=== PATIENT | female | born 1940 | race Asian ===

== ENCOUNTER 2018-04-12 10:04 | Outpatient (CLI) | payer OTHER | END 2018-04-12 20:48 | disposition home or self-care (01) | LOC: SUS 10:04 | PROVIDERS: ATTEND Family Medicine | DX: R31.9 Hematuria, unspecified (principal) | CPT/HCPCS: 76770 ==

== ENCOUNTER 2018-04-22 11:50 | Outpatient (CLI) | payer OTHER | END 2018-04-22 23:19 | disposition home or self-care (01) | LOC: SRD 11:50 | DX: N20.0 Calculus of kidney (principal); K44.9 Diaphragmatic hernia without obstruction or gangrene; K76.0 Fatty (change of) liver, not elsewhere classified ==

== ENCOUNTER 2018-07-28 12:20 | Outpatient (CLI) | payer OTHER, MEDICAID | END 2018-07-28 19:55 | disposition home or self-care (01) | LOC: SUS 12:20 | PROVIDERS: ATTEND Urology | DX: N13.30 Unspecified hydronephrosis (principal); N28.1 Cyst of kidney, acquired | CPT/HCPCS: 76770 ==

== ENCOUNTER 2018-08-04 11:33 | Outpatient (CLI) | payer OTHER | END 2018-08-04 20:17 | disposition home or self-care (01) | LOC: SCT 11:33 | PROVIDERS: ATTEND Family Medicine | DX: N13.2 Hydronephrosis with renal and ureteral calculous obstruction (principal); M47.897 Other spondylosis, lumbosacral region ==

== ENCOUNTER 2018-09-06 15:02 | Outpatient (CLI) | payer OTHER ==
[2018-09-07 08:14] LABS: % FREE PSA 22.7 % (.); FREE PSA 0.25 ng/mL; PROSTATE SPECIFIC AG TOTAL 1.1 ng/mL (0.0-4.0)
== END 2018-09-06 20:18 | disposition home or self-care (01) ==
LOC: SLB 15:02
PROVIDERS: ATTEND Urology
DX: Z12.5 Encounter for screening for malignant neoplasm of prostate (principal); R97.20 Elevated prostate specific antigen [PSA]
CPT/HCPCS: 36415; G0103

== ENCOUNTER 2018-09-12 10:33 | Outpatient (CLI) | payer OTHER | END 2018-09-12 20:39 | disposition home or self-care (01) | LOC: SUS 10:33 | PROVIDERS: ATTEND Urology | DX: N28.1 Cyst of kidney, acquired (principal) | CPT/HCPCS: 76770 ==

== ENCOUNTER 2018-11-10 10:44 | Outpatient (CLI) | payer OTHER | END 2018-11-10 18:49 | disposition home or self-care (01) | LOC: SUS 10:44 | PROVIDERS: ATTEND Urology | DX: N28.1 Cyst of kidney, acquired (principal) | CPT/HCPCS: 76770 ==

== ENCOUNTER 2018-12-02 07:30 | Outpatient (CLI) | payer OTHER ==
[~2018-12-02] VITALS: Ht 160 cm; Wt 81.6 kg
[2018-12-02] MEDS ORDERED: FUROSEMIDE 20 MG/2 ML VIAL IVP ONE (08:30)
== END 2018-12-02 19:38 | disposition home or self-care (01) ==
LOC: SNM 07:30
PROVIDERS: ATTEND Urology
DX: N13.39 Other hydronephrosis (principal)
CPT/HCPCS: 78708; A9562; J1940

== ENCOUNTER 2018-12-06 10:25 | Outpatient (CLI) | payer OTHER | END 2018-12-06 19:22 | disposition home or self-care (01) | LOC: SMI 10:25 | PROVIDERS: ATTEND Family Medicine | DX: M47.814 Spondylosis without myelopathy or radiculopathy, thoracic region (principal); M51.24 Other intervertebral disc displacement, thoracic region; M47.817 Spondylosis without myelopathy or radiculopathy, lumbosacral region; M51.36 Other intervertebral disc degeneration, lumbar region | CPT/HCPCS: 72146; 72148 ==

== ENCOUNTER → 2019-01-24 | Outpatient (CLI) | payer OTHER ==
[2019-01-24 09:28] LABS: ANION GAP 7 (5-15); CALCIUM 8.9 mg/dL (8.4-11.0); CHLORIDE 101 mmol/L (98-107); CREATININE 1.03 mg/dL (0.55-1.30); GLUCOSE 194 mg/dL (70-99); POTASSIUM 4.7 mmol/L (3.5-5.1); SODIUM SERUM 137 mmol/L (136-145); UREA NITROGEN, BLOOD 13 mg/dL (8-21)
[2019-01-24 09:32] LABS: ALANINE AMINOTRANSFERASE 38 U/L (12-78); ALBUMIN 3.6 g/dL (3.4-4.8); ASPARTATE AMINOTRANSFERASE 26 U/L (10-37); CHOLESTEROL 118 mg/dL (<200); HDL CHOLESTEROL 33 mg/dL (>45); LDL CHOLESTEROL 75 mg/dL (<100); TOTAL BILIRUBIN 0.9 mg/dL (0.0-1.0); TRIGLYCERIDES 74 mg/dL (30-150)
[2019-01-24 09:43] LABS: WHITE BLOOD COUNT (AUTO) 9.5 K/uL (4.8-10.8)
[2019-01-24 09:44] LABS: BASOPHILS % (AUTO) 0.6 % (0.0-2.0); EOSINOPHILS % (AUTO) 5.1 % (0.0-4.0); HEMATOCRIT 43.6 % (36-54); HEMOGLOBIN 14.5 g/dL (14.0-18.0); LYMPHOCYTES # (AUTO) 3.6 K/uL (1.0-5.5); LYMPHOCYTES % (AUTO) 38.1 % (20.5-51.5); MEAN CORPUSCULAR HEMOGLOBIN 30 pg (27-31); MEAN CORPUSCULAR HGB CONC 33 % (32-36); MEAN CORPUSCULAR VOLUME 91 fL (79.0-98.0); MONOCYTES % (AUTO) 11.2 % (1.7-9.3); NEUTROPHILS # (AUTO) 4.3 K/uL (1.8-7.7); PLATELET COUNT (AUTO) 202 K/uL (130-430); RED BLOOD CELL COUNT(AUTO) 4.78 MIL/uL (4.2-6.2); RED CELL DISTRIBUTION WIDTH 12.3 % (9.0-15.0)
[2019-01-24 09:45] LABS: BASOPHILS # (AUTO) 0.1 K/uL (0.0-0.2); EOSINOPHILS # (AUTO) 0.5 K/uL (0.0-0.4); MONOCYTES # (AUTO) 1.1 K/uL (0.0-1.0)
== END | disposition home or self-care (01) ==
LOC: SUS 08:10
PROVIDERS: ATTEND Surgery
DX: N28.1 Cyst of kidney, acquired (principal); K62.5 Hemorrhage of anus and rectum
CPT/HCPCS: 36415; 76700-TC; 80053; 80061; 85025

== ENCOUNTER 2019-01-25 18:03 | Outpatient (CLI) | payer OTHER | END 2019-01-25 20:57 | disposition home or self-care (01) | LOC: SRD 18:03 | PROVIDERS: ATTEND Family Medicine | DX: M19.012 Primary osteoarthritis, left shoulder (principal); M47.812 Spondylosis without myelopathy or radiculopathy, cervical region | CPT/HCPCS: 72040-TC; 73030 ==

== ENCOUNTER 2019-06-13 12:29 | Emergency (ER) | payer OTHER ==
[~2019-06-13] VITALS: Ht 160 cm; Wt 79.8 kg
[~2019-06-13 12:29] MED LIST: ASPI-862 PO; CALC-823 PO; DEXL60CA4 PO; HYDR-4274 PO; MAGN400T10 PO; METF1000 PO; METH500T PO; VITD2000 PO; VOLTAREN GEL 1% TP
[2019-06-13 12:38] VITALS: BP_SYST 126
[2019-06-13 13:54] LABS: BASOPHILS # (AUTO) 0.1 K/uL (0.0-0.2); BASOPHILS % (AUTO) 0.8 % (0.0-2.0); EOSINOPHILS # (AUTO) 0.4 K/uL (0.0-0.4); EOSINOPHILS % (AUTO) 3.7 % (0.0-4.0); HEMATOCRIT 44.7 % (36-54); HEMOGLOBIN 14.6 g/dL (14.0-18.0); LYMPHOCYTES # (AUTO) 3.1 K/uL (1.0-5.5); LYMPHOCYTES % (AUTO) 29.3 % (20.5-51.5); MEAN CORPUSCULAR HEMOGLOBIN 30 pg (27-31); MEAN CORPUSCULAR HGB CONC 33 % (32-36); MEAN CORPUSCULAR VOLUME 92 fL (79.0-98.0); MONOCYTES # (AUTO) 1.2 K/uL (0.0-1.0); MONOCYTES % (AUTO) 11.8 % (1.7-9.3); NEUTROPHILS # (AUTO) 5.7 K/uL (1.8-7.7); NEUTROPHILS % (AUTO) 54.4 % (40.0-70.0); PLATELET COUNT (AUTO) 204 K/uL (130-430); RED BLOOD CELL COUNT(AUTO) 4.84 MIL/uL (4.2-6.2); RED CELL DISTRIBUTION WIDTH 13.4 % (9.0-15.0); WHITE BLOOD COUNT (AUTO) 10.5 K/uL (4.8-10.8)
[2019-06-13 13:57] LABS: ANION GAP 10 (5-15); CALCIUM 9.5 mg/dL (8.4-11.0); CHLORIDE 101 mmol/L (98-107); CREATININE 1.09 mg/dL (0.55-1.30); GLUCOSE 264 mg/dL (70-99); POTASSIUM 4.3 mmol/L (3.5-5.1); SODIUM SERUM 137 mmol/L (136-145); UREA NITROGEN, BLOOD 14 mg/dL (8-21)
[2019-06-13 14:06] LABS: ALANINE AMINOTRANSFERASE 50 U/L (12-78); ALBUMIN 3.6 g/dL (3.4-4.8); ASPARTATE AMINOTRANSFERASE 31 U/L (10-37); LIPASE 56 U/L (73-393); TOTAL BILIRUBIN 0.7 mg/dL (0.0-1.0)
[2019-06-13] MEDS ORDERED: NACL 0.9% 1,000 ML IV ONE (14:15)
[2019-06-13] MEDS ORDERED: IOHEXOL 350 mgI/mL, 150 ML INFUS..BTL IV ONE (15:26)
[2019-06-13] MEDS ORDERED: KETOROLAC TROMETHAMINE 30 MG VIAL IVP ONE (17:45)
[2019-06-13 18:19] VITALS: BP_SYST 125
== END 2019-06-13 18:14 | disposition home or self-care (01) ==
LOC: SED 12:29
DX: R10.11 Right upper quadrant pain (principal); K21.9 Gastro-esophageal reflux disease without esophagitis; E11.9 Type 2 diabetes mellitus without complications; Z79.82 Long term (current) use of aspirin; Z79.899 Other long term (current) drug therapy
CPT/HCPCS: 36415; 71045; 71275; 80053; 83690; 84484; 85025; 85379; 93005; 96374; 99284; J1885; J7030; Q9967

== ENCOUNTER 2019-07-07 11:59 | Emergency (ER) | payer OTHER ==
[~2019-07-07] VITALS: Ht 160 cm; Wt 72.6 kg
--- NOTE | 2019-07-07 12:10 | NUR ---
Patient to ER bed 8 to gown for evaluation. Side rails up. Report given to Soo HOYOS.
--- NOTE | 2019-07-07 12:25 | NUR ---
Patient arrives with c/o of chest discomfort. Current pain 07/01. Patient reports also having generalized pain. No other c/o at the moment
[2019-07-07] MEDS ORDERED: KETOROLAC TROMETHAMINE 30 MG VIAL IVP ONE (12:30)
--- NOTE | 2019-07-07 12:30 | NUR ---
LEANDRO James at bedside examining patient.
--- NOTE | 2019-07-07 12:36 | NUR ---
Toradol given for pain 8/10 pain. Will reassess.
--- NOTE | 2019-07-07 12:45 | NUR ---
Patient current CP is 3/10. Patient reports feeling better.
[2019-07-07 13:11] LABS: BASOPHILS # (AUTO) 0.1 K/uL (0.0-0.2); BASOPHILS % (AUTO) 0.7 % (0.0-2.0); EOSINOPHILS # (AUTO) 0.2 K/uL (0.0-0.4); EOSINOPHILS % (AUTO) 1.5 % (0.0-4.0); HEMATOCRIT 44.2 % (36-54); HEMOGLOBIN 14.7 g/dL (14.0-18.0); LYMPHOCYTES # (AUTO) 2.8 K/uL (1.0-5.5); LYMPHOCYTES % (AUTO) 24.9 % (20.5-51.5); MEAN CORPUSCULAR HEMOGLOBIN 30 pg (27-31); MEAN CORPUSCULAR HGB CONC 33 % (32-36); MEAN CORPUSCULAR VOLUME 91 fL (79.0-98.0); MONOCYTES # (AUTO) 1.1 K/uL (0.0-1.0); MONOCYTES % (AUTO) 10.2 % (1.7-9.3); NEUTROPHILS # (AUTO) 7.1 K/uL (1.8-7.7); NEUTROPHILS % (AUTO) 62.7 % (40.0-70.0); PLATELET COUNT (AUTO) 157 K/uL (130-430); RED BLOOD CELL COUNT(AUTO) 4.85 MIL/uL (4.2-6.2); RED CELL DISTRIBUTION WIDTH 13.9 % (9.0-15.0); WHITE BLOOD COUNT (AUTO) 11.2 K/uL (4.8-10.8)
[2019-07-07 13:26] LABS: ANION GAP 13 (5-15); CALCIUM 9.3 mg/dL (8.4-11.0); CHLORIDE 104 mmol/L (98-107); CREATININE 1.08 mg/dL (0.55-1.30); GLUCOSE 227 mg/dL (70-99); POTASSIUM 4.6 mmol/L (3.5-5.1); SODIUM SERUM 142 mmol/L (136-145); UREA NITROGEN, BLOOD 12 mg/dL (8-21)
[2019-07-07 13:35] LABS: ALANINE AMINOTRANSFERASE 37 U/L (12-78); ALBUMIN 3.6 g/dL (3.4-4.8); ASPARTATE AMINOTRANSFERASE 26 U/L (10-37); TOTAL BILIRUBIN 0.9 mg/dL (0.0-1.0)
[2019-07-07 13:42] LABS: BILIRUBIN,URINE NEGATIVE (NEGATIVE); BLOOD, URINE NEGATIVE (NEGATIVE); CLARITY/URINE CLEAR (CLEAR); COLOR,URINE YELLOW (YELLOW); GLUCOSE,URINE TRACE (NEGATIVE); KETONES,URINE NEGATIVE (NEGATIVE); LEUKOCYTE ESTERASE ,URINE NEGATIVE (NEGATIVE); NITRITE, URINE NEGATIVE (NEGATIVE); PROTEIN URINE NEGATIVE (NEGATIVE)
--- NOTE | 2019-07-07 14:00 | NUR ---
Patient given written and verbal discharge instructions and verbalizes understanding. ER MD discussed with patient the results and treatment provided. Patient in stable condition. ID arm band removed. IV catheter removed intact and dressing applied, no active bleeding.Patient educated on pain management and to follow up with PMD. Pain Scale 3/10 .Opportunity for questions provided and answered. Medication side effect fact sheet provided.
[2019-07-07 14:49] VITALS: BP_SYST 153
== END 2019-07-07 14:00 | disposition home or self-care (01) ==
LOC: SED 11:59
DX: K59.00 Constipation, unspecified (principal); E11.9 Type 2 diabetes mellitus without complications; K21.9 Gastro-esophageal reflux disease without esophagitis; Z79.82 Long term (current) use of aspirin; Z79.84 Long term (current) use of oral hypoglycemic drugs; Z79.899 Other long term (current) drug therapy
CPT/HCPCS: 36415; 71045; 74176; 80053; 81003; 83880; 84484; 85025; 93005; 96374; 99284; J1885

== ENCOUNTER 2019-08-16 11:27 | Outpatient (CLI) | payer OTHER | END 2019-08-16 21:07 | disposition home or self-care (01) | LOC: SMI 11:27 | DX: M51.34 Other intervertebral disc degeneration, thoracic region (principal); M48.54XA Collapsed vertebra, not elsewhere classified, thoracic region, initial encounter for fracture; M51.24 Other intervertebral disc displacement, thoracic region | CPT/HCPCS: 36415; 72146; 85651-TC; 86140 ==

== ENCOUNTER 2020-01-05 09:52 | Outpatient (CLI) | payer OTHER | END 2020-01-05 19:02 | disposition home or self-care (01) | LOC: SLB 09:52 | DX: N28.1 Cyst of kidney, acquired (principal); J44.9 Chronic obstructive pulmonary disease, unspecified; I70.90 Unspecified atherosclerosis; R97.20 Elevated prostate specific antigen [PSA]; N20.0 Calculus of kidney | CPT/HCPCS: 36415; 84153 ==

== ENCOUNTER 2020-01-16 11:48 | Outpatient (CLI) | payer OTHER | END 2020-01-16 21:08 | disposition home or self-care (01) | LOC: SLB 11:48 | DX: S46.012A Strain of muscle(s) and tendon(s) of the rotator cuff of left shoulder, initial encounter (principal); X58.XXXA Exposure to other specified factors, initial encounter; Y93.89 Activity, other specified; Y92.89 Other specified places as the place of occurrence of the external cause; Y99.8 Other external cause status | CPT/HCPCS: 36415; 85651-TC; 86140 ==

== ENCOUNTER 2020-07-22 11:32 | Outpatient (CLI) | payer OTHER | END 2020-07-22 20:13 | disposition home or self-care (01) | LOC: SUS 11:32 | PROVIDERS: ATTEND Family Medicine | DX: N28.1 Cyst of kidney, acquired (principal); N40.0 Benign prostatic hyperplasia without lower urinary tract symptoms; I82.403 Acute embolism and thrombosis of unspecified deep veins of lower extremity, bilateral; R31.0 Gross hematuria; G89.29 Other chronic pain | CPT/HCPCS: 76770; 93970 ==

== ENCOUNTER 2020-12-20 16:18 | Emergency (ER) | payer OTHER ==
[~2020-12-20] VITALS: Ht 170.2 cm; Wt 80.3 kg
[2020-12-20 16:35] VITALS: BP_SYST 132
--- NOTE | 2020-12-20 16:35 | NUR ---
PT TO BED 2 FOR EVALUATION
--- NOTE | 2020-12-20 16:44 | NUR ---
RECEIVED AND IN ROOM, PT HERE FOR RT LEG PAIN S/P HOSPITALIZATION. DENIES INJURY LARGE HEMATOMA TO RT KNEE AND THIGH
--- NOTE | 2020-12-20 17:12 | NUR ---
DR AGUILARAL IN TO REASSESS
--- NOTE | 2020-12-20 17:28 | NUR ---
UPDATE TO DAUGHTER, LILLY
--- NOTE | 2020-12-20 17:46 | NUR ---
KNEE X-SHELBIE COMPLETED
--- NOTE | 2020-12-20 17:50 | NUR ---
ULTRASOUND AT BEDSIDE
[2020-12-20 19:19] VITALS: BP_SYST 141
--- NOTE | 2020-12-20 19:20 | NUR ---
Patient given written and verbal discharge instructions and verbalizes understanding. ER MD discussed with patient the results and treatment provided. Patient in stable condition. ID arm band removed. Patient educated on pain management and to follow up with PMD. Pain Scale []. Opportunity for questions provided and answered.
== END 2020-12-20 21:32 | disposition home or self-care (01) ==
LOC: SED 16:18
DX: M25.561 Pain in right knee (principal); M79.651 Pain in right thigh; E11.9 Type 2 diabetes mellitus without complications; K21.9 Gastro-esophageal reflux disease without esophagitis; Z79.899 Other long term (current) drug therapy; Z79.82 Long term (current) use of aspirin
CPT/HCPCS: 73564; 93971; 99284

== ENCOUNTER 2023-04-30 15:06 | Outpatient (CLI) | payer OTHER | END 2023-04-30 18:54 | disposition home or self-care (01) | LOC: SCT 15:06 | DX: S09.90XA Unspecified injury of head, initial encounter (principal); G31.89 Other specified degenerative diseases of nervous system; W19.XXXA Unspecified fall, initial encounter; Y93.89 Activity, other specified; Y92.89 Other specified places as the place of occurrence of the external cause; Y99.8 Other external cause status | CPT/HCPCS: 70450-TC; 76376 ==

== ENCOUNTER 2023-10-07 13:13 | Outpatient (CLI) | payer OTHER ==
[2023-10-07 16:21] LABS: ALANINE AMINOTRANSFERASE 21 U/L (12-78); ANION GAP 10 (5-15); ASPARTATE AMINOTRANSFERASE 14 U/L (10-37); CALCIUM 9.9 mg/dL (8.4-11.0); CARBON DIOXIDE 29 mmol/L (23-29); CHLORIDE 95 mmol/L (98-107); CREATININE 1.07 mg/dL (0.55-1.30); GLUCOSE 383 mg/dL (74-106); POTASSIUM 4.5 mmol/L (3.5-5.1); SODIUM SERUM 134 mmol/L (136-145); TOTAL BILIRUBIN 1.5 mg/dL (0.0-1.0); UREA NITROGEN, BLOOD 16 mg/dL (8-21)
== END 2023-10-07 18:22 | disposition home or self-care (01) ==
LOC: SMI 13:13
PROVIDERS: ATTEND Psychiatry & Neurology Neurology
DX: G31.89 Other specified degenerative diseases of nervous system (principal); N20.0 Calculus of kidney; J84.9 Interstitial pulmonary disease, unspecified; I25.10 Atherosclerotic heart disease of native coronary artery without angina pectoris; R59.0 Localized enlarged lymph nodes; K44.9 Diaphragmatic hernia without obstruction or gangrene; M40.294 Other kyphosis, thoracic region; N28.89 Other specified disorders of kidney and ureter; I70.90 Unspecified atherosclerosis; J96.11 Chronic respiratory failure with hypoxia; R26.9 Unspecified abnormalities of gait and mobility; I10 Essential (primary) hypertension; E11.9 Type 2 diabetes mellitus without complications; R05.9 Cough, unspecified
CPT/HCPCS: 36415; 70551; 71250-TC; 76376; 80053

== ENCOUNTER 2023-10-26 12:55 | Outpatient (CLI) | payer OTHER | END 2023-10-26 18:52 | disposition home or self-care (01) | LOC: SCT 12:55 | DX: G31.89 Other specified degenerative diseases of nervous system (principal); J34.89 Other specified disorders of nose and nasal sinuses | CPT/HCPCS: 70450-TC; 76376 ==

== ENCOUNTER 2024-06-03 13:31 | Inpatient (IN) | payer OTHER ==
[~2024-06-03] VITALS: Ht 160 cm; Wt 65.8 kg
[2024-06-03] VITALS (7 sets, daily range): BP systolic 120–143; PULSE 58–88; RESP 16–20; TEMP 97.5–97.8; O2SAT 94–99
[2024-06-03] MEDS: IPRATROPIUM/ALBUTEROL SULFATE 3 ML AMPUL.NEB (DUONEB) INH ONE (15:11)
[2024-06-03] MEDS: methylPREDNISolone SOD SUCC/PF 62.5 MG/ML VIAL IVP ONE (15:27)
[2024-06-03 15:33] LABS: HEMOGLOBIN 16.4 g/dL (14.0-18.0)
[2024-06-03 15:40] LABS: BASOPHILS # (AUTO) 0.1 K/uL (0.0-0.2); BASOPHILS % (AUTO) 0.8 % (0.0-2.0); EOSINOPHILS # (AUTO) 0.3 K/uL (0.0-0.4); EOSINOPHILS % (AUTO) 2.8 % (0.0-4.0); LYMPHOCYTES # (AUTO) 2.7 K/uL (1.0-5.5); LYMPHOCYTES % (AUTO) 26.7 % (20.5-51.5); MEAN CORPUSCULAR HEMOGLOBIN 30 pg (27-31); MEAN CORPUSCULAR HGB CONC 34 % (32-36); MEAN CORPUSCULAR VOLUME 88 fL (79.0-98.0); MONOCYTES # (AUTO) 1.1 K/uL (0.0-1.0); MONOCYTES % (AUTO) 10.9 % (1.7-9.3); NEUTROPHILS # (AUTO) 5.9 K/uL (1.8-7.7); NEUTROPHILS % (AUTO) 58.8 % (40.0-70.0); PLATELET COUNT (AUTO) 250 K/uL (130-430); RED BLOOD CELL COUNT(AUTO) 5.46 MIL/uL (4.2-6.2); RED CELL DISTRIBUTION WIDTH 13.7 % (9.0-15.0)
[2024-06-03 16:04] LABS: ANION GAP 6 (5-15); CALCIUM 9.8 mg/dL (8.4-11.0); CARBON DIOXIDE 31 mmol/L (23-29); CHLORIDE 97 mmol/L (98-107); CREATININE 1.16 mg/dL (0.55-1.30); POTASSIUM 4.4 mmol/L (3.5-5.1); SODIUM SERUM 134 mmol/L (136-145); UREA NITROGEN, BLOOD 23 mg/dL (8-21)
[2024-06-03 16:09] LABS: GLUCOSE 438 mg/dL (74-106)
[2024-06-03] MEDS ORDERED: methylPREDNISolone SOD SUCC 500 MG/VIAL (Solu-MEDROL) IV SCH (16:30)
[2024-06-03] MEDS ORDERED: GLUCOSE (DEXTROSE) ORAL GEL -Adults PO PRN (16:30)
[2024-06-03] MEDS ORDERED: ONDANSETRON HCL 4 MG/2 ML VIAL IVP PRN (16:30)
[2024-06-03] MEDS ORDERED: MORPHINE 2 MG/ML INJ. SYRINGE IVP PRN (16:30)
[2024-06-03] MEDS ORDERED: ACETAMINOPHEN 325 MG TABLET PO PRN (16:30)
[2024-06-03] MEDS ORDERED: HYDROcodone/ACETAMIN 5-325 MG TAB (NORCO/ VICODIN) PO PRN (16:30)
[2024-06-03] MEDS ORDERED: NACL 0.9% 1,000 ML IV SCH ×2 (16:30→18:00)
[2024-06-03] MEDS ORDERED: D5W 1,000 ML IV PRN (16:30)
[2024-06-03] MEDS: INSULIN REGULAR, HUMAN 10 UNITS/0.1 ML, 3 ML VIAL IVP ONE (17:12)
[2024-06-03] MEDS: cefTRIAXone 1 GM IVPB PREMIX 50 ML IV ONE (17:21)
[2024-06-03] MEDS ORDERED: DICL100G59 (17:46)
[2024-06-03] MEDS ORDERED: CLOP75TA2 (17:46)
[2024-06-03] MEDS ORDERED: OXYC-133 (17:46)
[2024-06-03] MEDS ORDERED: INSU3INS8 (17:46)
[2024-06-03] MEDS ORDERED: GLIM2TAB (17:46)
[2024-06-03] MEDS ORDERED: LINA290C (17:46)
[2024-06-03] MEDS ORDERED: ALBMDI (17:46)
[2024-06-03] MEDS ORDERED: INSU100I24 (17:46)
[2024-06-03] MEDS ORDERED: LINA5TAB2 (17:46)
[2024-06-03] MEDS ORDERED: INSU100V26 (17:46)
[2024-06-03] MEDS ORDERED: LIP20 (17:46)
[2024-06-03] MEDS ORDERED: DEXL60CA4 (17:46)
[2024-06-03] MEDS ORDERED: CLOT30CR37 (17:46)
[2024-06-03] MEDS: NACL 0.9% 1,000 ML IV SCH (19:01)
[2024-06-03] MEDS: NS 500 ML IV ONE ×2 (19:09→19:10)
[2024-06-03] MEDS: IPRATROPIUM BROM 0.5 MG/2.5 ML VIAL.NEB (ATROVENT) INH SCH (19:14)
[2024-06-03] MEDS: ALBUTEROL SULFATE 0.083% 2.5 MG/3 ML VIAL.NEB INH SCH (19:15)
[2024-06-03] MEDS: INSULIN GLARGINE 100 UNITS/ML, 10 ML VIAL SUBCUT SCH (20:21)
[2024-06-03] MEDS: INSULIN LISPRO SLIDING SCALE 100 UNITS/ML, 3 ML VIAL (humaLOG) SUBCUT PRN (20:26)
[2024-06-03] MEDS: AZITHROMYCIN 500 MG in NS 250 ML IV SCH (21:11)
[2024-06-03] MEDS: METHYLPREDNISOLONE SOD SUCC 40 MG/ML VIAL IVP SCH (21:12)
[2024-06-03] MEDS: AZITHROMYCIN 500 MG/VIAL (ZITHROMAX) IV ONE (21:12)
[2024-06-03] MEDS: ENOXAPARIN SODIUM 30 MG/0.3 ML SYRINGE SUBCUT SCH (22:57)
[2024-06-04] VITALS (12 sets, daily range): BP systolic 95–132; PULSE 85–94; RESP 16–18; TEMP 97–98.4; O2SAT 96–100
[2024-06-04 07:18] LABS: BASOPHILS % (AUTO) 0.1 % (0.0-2.0); HEMATOCRIT 45.6 % (36-54); LYMPHOCYTES # (AUTO) 1.2 K/uL (1.0-5.5); LYMPHOCYTES % (AUTO) 10.3 % (20.5-51.5); MEAN CORPUSCULAR HEMOGLOBIN 29 pg (27-31); MEAN CORPUSCULAR HGB CONC 33 % (32-36); MEAN CORPUSCULAR VOLUME 88 fL (79.0-98.0); MONOCYTES # (AUTO) 0.4 K/uL (0.0-1.0); MONOCYTES % (AUTO) 3.3 % (1.7-9.3); NEUTROPHILS # (AUTO) 10.4 K/uL (1.8-7.7); NEUTROPHILS % (AUTO) 86.3 % (40.0-70.0); PLATELET COUNT (AUTO) 260 K/uL (130-430); RED BLOOD CELL COUNT(AUTO) 5.18 MIL/uL (4.2-6.2); RED CELL DISTRIBUTION WIDTH 13.9 % (9.0-15.0)
[2024-06-04 07:46] LABS: ALANINE AMINOTRANSFERASE 19 U/L (12-78); ALBUMIN 3.8 g/dL (3.4-4.8); ANION GAP 9 (5-15); ASPARTATE AMINOTRANSFERASE 10 U/L (10-37); CALCIUM 9.5 mg/dL (8.4-11.0); CARBON DIOXIDE 30 mmol/L (23-29); CHLORIDE 98 mmol/L (98-107); CREATININE 1.11 mg/dL (0.55-1.30); PHOSPHORUS 3.9 mg/dL (2.7-4.5); POTASSIUM 3.9 mmol/L (3.5-5.1); SODIUM SERUM 137 mmol/L (136-145); TOTAL BILIRUBIN 0.9 mg/dL (0.0-1.0); TOTAL PROTEIN, SERUM 7.8 g/dL (6.4-8.3); UREA NITROGEN, BLOOD 23 mg/dL (8-21)
[2024-06-04 07:49] LABS: GLUCOSE 401 mg/dL (74-106)
[2024-06-04] MEDS ORDERED: ALBUTEROL SULFATE 0.083% 2.5 MG/3 ML VIAL.NEB INH PRN (10:00)
[2024-06-04] MEDS ORDERED: CALCIUM CARBONATE/VITAMIN D3 1 TAB TABLET PO SCH (10:00)
[2024-06-04] MEDS ORDERED: ASPIRIN 325 MG TABLET (ECOTRIN) PO SCH (10:00)
[2024-06-04] MEDS: ATORVASTATIN 20 MG TABLET PO ONE (11:36)
[2024-06-04] MEDS: CLOPIDOGREL BISULFATE 75 MG TABLET PO ONE (11:36)
[2024-06-04] MEDS: INSULIN GLARGINE 100 UNITS/ML, 10 ML VIAL SUBCUT ONE (11:55)
[2024-06-04] MEDS: cefTRIAXone 1 GM IVPB PREMIX 50 ML IV SCH (16:39)
[2024-06-04] MEDS: INSULIN Lispro 100 UNITS/ML, 3 ML VIAL (humaLOG) SUBCUT ONE (23:56)
[2024-06-04] MEDS: INSULIN GLARGINE 100 UNITS/ML, 10 ML VIAL SUBCUT SCH (23:58)
[2024-06-05] VITALS (11 sets, daily range): BP systolic 99–126; PULSE 72–85; RESP 16–18; TEMP 96.8–97.9; O2SAT 94–100
[2024-06-05] MEDS: ATORVASTATIN 20 MG TABLET PO SCH (09:06)
[2024-06-05] MEDS: CLOPIDOGREL BISULFATE 75 MG TABLET PO SCH (09:06)
[2024-06-05 10:18] LABS: BASOPHILS % (AUTO) 0.2 % (0.0-2.0); EOSINOPHILS % (AUTO) 0.1 % (0.0-4.0); HEMATOCRIT 44.4 % (36-54); HEMOGLOBIN 14.6 g/dL (14.0-18.0); LYMPHOCYTES # (AUTO) 1.4 K/uL (1.0-5.5); LYMPHOCYTES % (AUTO) 6.5 % (20.5-51.5); MEAN CORPUSCULAR HEMOGLOBIN 29 pg (27-31); MEAN CORPUSCULAR HGB CONC 33 % (32-36); MEAN CORPUSCULAR VOLUME 89 fL (79.0-98.0); MONOCYTES # (AUTO) 1.6 K/uL (0.0-1.0); MONOCYTES % (AUTO) 7.8 % (1.7-9.3); NEUTROPHILS # (AUTO) 17.8 K/uL (1.8-7.7); PLATELET COUNT (AUTO) 295 K/uL (130-430); RED BLOOD CELL COUNT(AUTO) 4.98 MIL/uL (4.2-6.2); RED CELL DISTRIBUTION WIDTH 13.7 % (9.0-15.0); WHITE BLOOD COUNT (AUTO) 20.8 K/uL (4.8-10.8)
[2024-06-05 10:41] LABS: ALANINE AMINOTRANSFERASE 17 U/L (12-78); ALBUMIN 3.7 g/dL (3.4-4.8); ANION GAP 6 (5-15); CALCIUM 9.4 mg/dL (8.4-11.0); CARBON DIOXIDE 31 mmol/L (23-29); CHLORIDE 100 mmol/L (98-107); CREATININE 1.15 mg/dL (0.55-1.30); GLUCOSE 292 mg/dL (74-106); POTASSIUM 3.9 mmol/L (3.5-5.1); SODIUM SERUM 137 mmol/L (136-145); TOTAL BILIRUBIN 0.7 mg/dL (0.0-1.0); TOTAL PROTEIN, SERUM 7.3 g/dL (6.4-8.3); UREA NITROGEN, BLOOD 21 mg/dL (8-21)
[2024-06-05 10:56] LABS: ASPARTATE AMINOTRANSFERASE 15 U/L (10-37)
[2024-06-05 11:41] LABS: NEUTROPHILS % (AUTO) 85.4 % (40.0-70.0)
[2024-06-05] MEDS: IPRATROPIUM/ALBUTEROL SULFATE 3 ML AMPUL.NEB (DUONEB) INH ONE (15:30)
[2024-06-05] MEDS: IPRATROPIUM/ALBUTEROL SULFATE 3 ML AMPUL.NEB (DUONEB) INH SCH (19:55)
[2024-06-05] MEDS ORDERED: INSULIN GLARGINE 100 UNITS/ML, 10 ML VIAL SUBCUT SCH (21:00)
[2024-06-05] MEDS: INSULIN GLARGINE 100 UNITS/ML, 10 ML VIAL SUBCUT SCH (21:41)
[2024-06-06] VITALS (14 sets, daily range): BP systolic 114–159; PULSE 77–86; RESP 14–18; TEMP 97–97.9; O2SAT 95–99
[2024-06-06 04:35] LABS: HEMATOCRIT 41.4 % (36-54); HEMOGLOBIN 13.5 g/dL (14.0-18.0); LYMPHOCYTES # (AUTO) 1.1 K/uL (1.0-5.5); LYMPHOCYTES % (AUTO) 6.6 % (20.5-51.5); MEAN CORPUSCULAR HEMOGLOBIN 29 pg (27-31); MEAN CORPUSCULAR HGB CONC 33 % (32-36); MEAN CORPUSCULAR VOLUME 88 fL (79.0-98.0); MONOCYTES % (AUTO) 6.3 % (1.7-9.3); NEUTROPHILS # (AUTO) 14.4 K/uL (1.8-7.7); NEUTROPHILS % (AUTO) 87.1 % (40.0-70.0); PLATELET COUNT (AUTO) 259 K/uL (130-430); RED BLOOD CELL COUNT(AUTO) 4.71 MIL/uL (4.2-6.2); RED CELL DISTRIBUTION WIDTH 13.9 % (9.0-15.0); WHITE BLOOD COUNT (AUTO) 16.6 K/uL (4.8-10.8)
[2024-06-06 04:46] LABS: ANION GAP 8 (5-15); CALCIUM 8.8 mg/dL (8.4-11.0); CARBON DIOXIDE 29 mmol/L (23-29); CHLORIDE 106 mmol/L (98-107); CREATININE 0.92 mg/dL (0.55-1.30); GLUCOSE 114 mg/dL (74-106); SODIUM SERUM 143 mmol/L (136-145); UREA NITROGEN, BLOOD 20 mg/dL (8-21)
[2024-06-06] MEDS: CALCIUM CARBONATE 500 MG/ TAB.CHEW PO PRN (15:26)
[2024-06-07] VITALS (9 sets, daily range): BP systolic 106–113; PULSE 71–72; RESP 16–17; TEMP 97.1–98.6; O2SAT 97–100
[2024-06-07] MEDS: DEXTROSE 50% JECT 50 ML DISP.SYRIN IVP PRN (06:12)
[2024-06-07] MEDS: METHYLPREDNISOLONE SOD SUCC 40 MG/ML VIAL IVP SCH (08:57)
== END 2024-06-07 15:30 | DRG 637 ==
LOC: SED 13:31 → STU 16:27 → SMU 19:13 → STU 19:47 → SMU 06-07 01:17
PROVIDERS: ADMIT Family Medicine; ATTEND Family Medicine
DX: E11.65 Type 2 diabetes mellitus with hyperglycemia (principal); J18.9 Pneumonia, unspecified organism; J44.0 Chronic obstructive pulmonary disease with (acute) lower respiratory infection; J96.10 Chronic respiratory failure, unspecified whether with hypoxia or hypercapnia; I10 Essential (primary) hypertension; I25.10 Atherosclerotic heart disease of native coronary artery without angina pectoris; E78.5 Hyperlipidemia, unspecified; Z86.73 Personal history of transient ischemic attack (TIA), and cerebral infarction without residual deficits; Z79.82 Long term (current) use of aspirin; Z79.899 Other long term (current) drug therapy; I25.2 Old myocardial infarction; Z79.4 Long term (current) use of insulin; Z79.51 Long term (current) use of inhaled steroids; Z79.84 Long term (current) use of oral hypoglycemic drugs
CPT/HCPCS: 36415; 70450-TC; 71045; 80048; 80053; 82948; 83735; 83880; 84100; 84484; 85025; 92610-GN; 93005; 94070; 94640; 94760; 97110-GP; 97116-GP; 97530-GP; 99285; G0378; J0456; J0696; J1030; J1650; J1815; J2930; J7050